=== PATIENT | female | born 1980 | race Caucasian/White ===

== ENCOUNTER 2017-10-03 16:09 | Emergency (ER) | payer MEDICAID ==
[~2017-10-03] VITALS: Ht 154.9 cm; Wt 97.0 kg
[2017-10-03 18:13] LABS: CLARITY URINE CLEAR (CLEAR); COLOR URINE YELLOW (YELLOW); KETONES URINE NEGATIVE (NEGATIVE); LEUKOCYTE ESTERASE URINE NEGATIVE (NEGATIVE); NITRITE URINE NEGATIVE (NEGATIVE); OCCULT BLOOD URINE TRACE (NEGATIVE); PROTEIN URINE NEGATIVE (NEGATIVE); SPECIFIC GRAVITY URINE 1.022 (1.005-1.030); UROBILINOGEN URINE 0.2 E.U./dL (0.2-1.0)
[2017-10-03 23:36] LABS: CHLORIDE 104 mEq/L (98-107)
[2017-10-03 23:39] LABS: BASOPHILS % 0.6 % (0.0-2.0); EOSINOPHILS % 1.4 % (0.0-5.0); HEMATOCRIT. 39.5 % (36.0-48.0); HEMOGLOBIN. 13.8 g/dL (12.0-16.0); LYMPHOCYTES % 37.2 % (20.0-50.0); MEAN CORPUSCULAR HEMOGLOBIN 31.1 pg (28.0-32.0); MEAN CORPUSCULAR VOLUME 89.1 fL (81.0-99.0); MONOCYTES % 7.2 % (2.0-8.0); NEUTROPHILS % 53.6 % (40.0-76.0); PLATELET 343 x1000/uL (130-400); RED BLOOD CELL COUNT 4.44 mill/uL (4.2-5.4); RED CELL DISTRIBUTION WIDTH 11.9 % (11.6-14.6)
[2017-10-03] MEDS ORDERED: KETOROLAC 60MG/2ML VIAL IM STA (23:58)
[2017-10-04 00:27] VITALS: BP 138/75
== END 2017-10-04 01:14 | disposition home or self-care (01) ==
LOC: ER 17:27
DX: N39.0 Urinary tract infection, site not specified (principal); E11.9 Type 2 diabetes mellitus without complications; E03.9 Hypothyroidism, unspecified; J45.909 Unspecified asthma, uncomplicated; F12.10 Cannabis abuse, uncomplicated; Z98.890 Other specified postprocedural states
CPT/HCPCS: 36415; 80053; 81003; 81025; 85025; 96372; 99284; J1885; Z7610

== ENCOUNTER 2018-06-13 00:21 | Emergency (ER) | payer MEDICAID ==
[~2018-06-13] VITALS: Ht 167.6 cm; Wt 100.0 kg
[2018-06-13] MEDS ORDERED: ACETAMINOPHEN 325MG TABLET PO STA (06:33)
[2018-06-13] MEDS ORDERED: ASPIRIN 81MG TABLET PO ONE (06:45)
[2018-06-13 06:57] LABS: BASOPHILS % 0.8 % (0.0-2.0); EOSINOPHILS % 2.6 % (0.0-5.0); HEMOGLOBIN. 14.5 g/dL (12.0-16.0); MEAN CORPUSCULAR HEMOGLOBIN 31.3 pg (28.0-32.0); MEAN CORPUSCULAR VOLUME 90.5 fL (81.0-99.0); MEAN PLATELET VOLUME 9.3 fl (7.4-10.4); MONOCYTES % 7.9 % (2.0-8.0); NEUTROPHILS % 47.7 % (40.0-76.0); PLATELET 353 x1000/uL (130-400); RED BLOOD CELL COUNT 4.64 mill/uL (4.2-5.4); RED CELL DISTRIBUTION WIDTH 12.2 % (11.6-14.6)
[2018-06-13 07:02] LABS: CHLORIDE 102 mEq/L (98-107)
[2018-06-13 08:10] VITALS: BP 136/79
== END 2018-06-13 08:25 | disposition home or self-care (01) ==
LOC: ER 00:21
DX: R07.89 Other chest pain (principal); R03.0 Elevated blood-pressure reading, without diagnosis of hypertension; F43.9 Reaction to severe stress, unspecified; Z63.4 Disappearance and death of family member; E11.9 Type 2 diabetes mellitus without complications; F12.90 Cannabis use, unspecified, uncomplicated
CPT/HCPCS: 36415; 71045; 83880; 84484; 93005; 99284

== ENCOUNTER 2019-07-09 13:24 | Emergency (ER) | payer MEDICAID ==
[~2019-07-09] VITALS: Ht 154.9 cm; Wt 92.9 kg
[2019-07-09] MEDS ORDERED: KETOROLAC 60MG/2ML VIAL IM NR (14:30)
[2019-07-09 14:53] LABS: CLARITY URINE CLOUDY (CLEAR); COLOR URINE YELLOW (YELLOW); KETONES URINE NEGATIVE (NEGATIVE); LEUKOCYTE ESTERASE URINE 2+ (NEGATIVE); NITRITE URINE NEGATIVE (NEGATIVE); OCCULT BLOOD URINE 1+ (NEGATIVE); PROTEIN URINE NEGATIVE (NEGATIVE); SPECIFIC GRAVITY URINE 1.031 (1.005-1.030); UROBILINOGEN URINE 0.2 E.U./dL (0.2-1.0)
[2019-07-09 15:58] VITALS: BP 126/84
== END 2019-07-09 15:58 | disposition home or self-care (01) ==
LOC: ER 13:52
DX: S39.012A Strain of muscle, fascia and tendon of lower back, initial encounter (principal); N39.0 Urinary tract infection, site not specified; I20.8 Other forms of angina pectoris; J45.909 Unspecified asthma, uncomplicated; E11.9 Type 2 diabetes mellitus without complications; E03.9 Hypothyroidism, unspecified; E66.8 Other obesity; X58.XXXA Exposure to other specified factors, initial encounter; Y93.89 Activity, other specified; Y92.89 Other specified places as the place of occurrence of the external cause; Y99.8 Other external cause status; Z68.35 Body mass index [BMI] 35.0-35.9, adult; Z90.89 Acquired absence of other organs
CPT/HCPCS: 81003; 87086; 96372; 99283; J1885

== ENCOUNTER 2019-10-28 18:03 | Emergency (ER) | payer MEDICAID ==
[~2019-10-28] VITALS: Ht 154.9 cm; Wt 96.0 kg
[2019-10-28] MEDS ORDERED: ONDANSETRON HCL 4MG/2ML INJ IV STA (18:38)
[2019-10-28] MEDS ORDERED: MORPHINE SULFATE 4 MG/ML CPJ (NOT FOR IM USE) IV STA (18:38)
[2019-10-28] MEDS ORDERED: SODIUM CHLORIDE 0.9% 1,000 ML IV ONE (18:38)
[2019-10-28 19:08] LABS: EOSINOPHILS % 0.9 % (0.0-5.0); HEMATOCRIT. 43.4 % (36.0-48.0); HEMOGLOBIN. 15.6 g/dL (12.0-16.0); MEAN CORPUSCULAR HEMOGLOBIN 32.2 pg (28.0-32.0); MONOCYTES % 7.7 % (2.0-8.0); NEUTROPHILS % 64.4 % (40.0-76.0); PLATELET 295 x1000/uL (130-400); RED BLOOD CELL COUNT 4.83 mill/uL (4.2-5.4); RED CELL DISTRIBUTION WIDTH 12.5 % (11.6-14.6)
[2019-10-28 19:14] LABS: CLARITY URINE CLOUDY (CLEAR); COLOR URINE YELLOW (YELLOW); KETONES URINE NEGATIVE (NEGATIVE); LEUKOCYTE ESTERASE URINE 1+ (NEGATIVE); NITRITE URINE NEGATIVE (NEGATIVE); OCCULT BLOOD URINE TRACE (NEGATIVE); PROTEIN URINE NEGATIVE (NEGATIVE); SPECIFIC GRAVITY URINE 1.045 (1.005-1.030); UROBILINOGEN URINE 0.2 E.U./dL (0.2-1.0)
[2019-10-28 19:15] LABS: CHLORIDE 102 mEq/L (98-107)
[2019-10-28 19:16] LABS: HCG SCREEN NEGATIVE
[2019-10-28 19:18] LABS: PROTHROMBIN TIME 10.5 sec (9.6-11.0)
[2019-10-28 19:19] LABS: ETHANOL BLOOD < 10 mg/dL
[2019-10-28 19:25] LABS: *AMPHETAMINES SCREEN URINE NEGATIVE (NEGATIVE); *BARBITURATES SCREEN URINE NEGATIVE (NEGATIVE); *BENZODIAZEPINES SCREEN URINE NEGATIVE (NEGATIVE); *COCAINE SCREEN URINE NEGATIVE (NEGATIVE)
[2019-10-28 19:26] LABS: METHADONE URINE SCREEN NEGATIVE (NEGATIVE); OPIATES URINE SCREEN NEGATIVE (NEGATIVE); PHENCYCLIDINE URINE SCREEN NEGATIVE (NEGATIVE)
[2019-10-28 19:32] LABS: CANNABINOID URINE SCREEN PRESUMTIVE POSITIVE (NEGATIVE)
[2019-10-28] MEDS ORDERED: FLUCONAZOLE 50MG TABLET PO ONE (22:00)
[2019-10-28 22:15] VITALS: BP 119/70
== END 2019-10-28 22:45 | disposition home or self-care (01) ==
LOC: ER 18:03
DX: N39.0 Urinary tract infection, site not specified (principal); E11.9 Type 2 diabetes mellitus without complications; J45.909 Unspecified asthma, uncomplicated; E03.9 Hypothyroidism, unspecified; F12.10 Cannabis abuse, uncomplicated; Z90.89 Acquired absence of other organs; Z79.84 Long term (current) use of oral hypoglycemic drugs
CPT/HCPCS: 36415; 76830; 76856; 80053; 80305; 80320; 81003; 81025; 83605; 83690; 84703; 85025; 85610; 96374; 96375; 99285; J2270; J2405; J7030; G0480